=== PATIENT | male | born 1950 | race African-American/Black ===

== ENCOUNTER 2017-03-25 14:53 | Emergency (ER) | payer OTHER, MEDICAID ==
[2017-03-25 17:25] VITALS: BP 118/61
== END 2017-03-25 17:25 | disposition home or self-care (01) ==
LOC: ED 14:53
DX: S09.90XA Unspecified injury of head, initial encounter (principal); Z79.899 Other long term (current) drug therapy; Z86.718 Personal history of other venous thrombosis and embolism; W21.04XA Struck by golf ball, initial encounter; Y93.89 Activity, other specified; Y92.89 Other specified places as the place of occurrence of the external cause; Y99.8 Other external cause status